=== PATIENT | female | born 1960 | race Caucasian/White ===

== ENCOUNTER 2023-02-20 10:15 | Outpatient (CLI) | payer OTHER | END 2023-02-20 10:16 | disposition home or self-care (01) | LOC: PET 10:15 | PROVIDERS: ATTEND Internal Medicine Hematology & Oncology | DX: C50.211 Malignant neoplasm of upper-inner quadrant of right female breast (principal); C79.51 Secondary malignant neoplasm of bone | CPT/HCPCS: 78815; A9552 ==

== ENCOUNTER 2023-04-08 07:22 | Inpatient (IN) | payer OTHER ==
[2023-04-08] MEDS ORDERED: Ondansetron PF 4 MG/2 ML Vial ONE ×2 (07:49→07:51)
[2023-04-08] MEDS ORDERED: Cefepime 2 GM VIAL ONE (07:49)
[2023-04-08] MEDS ORDERED: Ketorolac Tromethamine 30 MG/ML VIAL ONE (07:49)
[2023-04-08 07:56] LABS: #Monocytes 1.8 thou/uL (0.11-0.59); #Neutrophils 9.3 thou/uL (1.40-6.50); %Basophils 0.2 % (0.0-1.0); %Lymphocytes 8.4 % (21.0-51.0); %Monocytes 13.4 % (0.0-10.0); %Neutrophils 70.1 % (42.0-75.0); Hematocrit 30.7 % (36.0-47.0); Hemoglobin 9.7 g/dL (12.0-16.0); Mean Corpuscular HGB CONC 31.6 g/dL (32.0-36.0); Mean Corpuscular Hemoglobin 28.1 pg (27.0-31.0); Mean Platelet Volume 9.7 fL (7.4-10.4); Platelet Count 420 10x3/uL (130-400); RBC Distribution Width 19.9 % (11.5-14.5); Red Blood Cell (RBC) Count 3.45 mill/uL (4.20-5.40); White Blood Cell (WBC) Count 13.2 10x3/uL (4.8-10.8)
[2023-04-08 08:11] LABS: INR-International Normal Ratio 1.3; PTT 43.7 sec (22.9-36.1); Prothrombin Time 16.9 sec (12.0-14.7)
[2023-04-08] MEDS ORDERED: Acetaminophen 500 MG TAB ONE (08:52)
[2023-04-08 09:03] LABS: Carbon Dioxide 23 mmol/L (22-29); Chloride 99 mmol/L (98-107); Sodium 139 mmol/L (136-145)
[2023-04-08 09:04] LABS: AST (SGOT) 42 U/L (5-34); Albumin 4.3 g/dL (3.5-5.0); Alkaline Phosphatase 115 U/L (40-110); Anion Gap 21 mmol/L (10-20); BUN (Urea Nitrogen) 24 mg/dL (9.8-20.1); Bilirubin, Total 0.9 mg/dL (0.2-1.2); Calc. Creatinine Clearance 0 mL/min (70-130); Calcium 10.8 mg/dL (7.6-10.4); Estimated GFR 48; Globulin 4.8 g/dL (2.4-3.5); Glucose 140 mg/dL (70-105); Protein, Total 9.1 g/dL (6.0-8.3)
[2023-04-08 09:05] LABS: ALT (SGPT) 21 U/L (8-55)
[2023-04-08 09:38] LABS: SARS-CoV-2 NAA Rapid Test Not Detected (NotDetected)
[2023-04-08 10:01] LABS: Bacteria/HPF None Seen HPF (None Seen); Bilirubin Negative (Negative); Blood, Urine Negative (Negative); CAUTI Indications for Culture Fever or rigors; Clarity Clear (Clear); Glucose, Urine (Dipstick) Normal (Negative); Ketone, Urine Negative (Negative); Leukocyte Negative Leu/uL (Negative); Nitrite Negative (Negative); Protein, Urine (Dipstick) 70 mg/dL (Neg-Trace); RBC/HPF 0-3 HPF (0-3); Specific Gravity, Urine 1.039 (1.002-1.036); Squamous Epithelial 0-3 HPF (0-3); Urobilinogen Normal mg/dL (Less than 2); WBC/HPF 0-3 HPF (0-3); pH, Urine 8.5 (5.0-9.0)
[2023-04-08 10:03] LABS: Urine Culture Reflex No No
[2023-04-08] MEDS ORDERED: Iopamidol-370 76% 500 ML MDV (1 ML CHARGE) ONE (10:27)
[2023-04-08] MEDS ORDERED: Vancomycin 1 GM/200 ML (FROZEN) BAG ONE (11:41)
[2023-04-08] MEDS ORDERED: Ondansetron ODT 4 MG TAB PO PRN (12:10)
[2023-04-08 12:25] LABS: Lactic Acid 0.5 mmol/L (0.5-2.2)
[2023-04-08] MEDS ORDERED: Ondansetron ORAL SOLN. 4 MG/5 ML UDCUP PO PRN (12:38)
[2023-04-08] MEDS: Lactated Ringer's 1,000 ML IV SCH ×2 (13:45→20:57)
[2023-04-08 14:03] VITALS: BMI 27.1
[2023-04-08] MEDS ORDERED: metroNIDAZOLE 500 MG/100 ML BAG ONE (14:20)
[2023-04-08] MEDS: metroNIDAZOLE 500 MG in Premix Bag 1 BAG IVPB SCH ×2 (14:35→20:57)
[2023-04-08] MEDS ORDERED: Acetaminophen 325 MG TAB ONE (16:38)
[2023-04-08] MEDS ORDERED: Ondansetron ODT 4 MG TAB ONE (16:43)
[2023-04-08] MEDS: Acetaminophen 325 MG TAB PO PRN (16:46)
[2023-04-08] MEDS ORDERED: Ibuprofen 600 MG TAB PO PRN (17:19)
[2023-04-08] MEDS: Ondansetron PF 4 MG/2 ML Vial IVP PRN (18:13)
[2023-04-08] MEDS ORDERED: Acetaminophen 650 MG Suppository PR PRN (19:26)
[2023-04-08] MEDS: Ketorolac Tromethamine 30 MG/ML VIAL IVP PRN (19:36)
[2023-04-08] MEDS: Promethazine HCl 25 MG in Sodium Chloride 0.9% 50 ML IVPB PRN (19:45)
[2023-04-08] MEDS: Cefepime 2 GM in Sodium Chloride 0.9% 100 ML IVPB SCH (20:57)
[2023-04-08] MEDS: Atorvastatin Calcium 10 MG TAB PO SCH (20:57)
[2023-04-09] MEDS: metroNIDAZOLE 500 MG in Premix Bag 1 BAG IVPB SCH ×3 (05:30→22:44)
[2023-04-09] MEDS: Lactated Ringer's 1,000 ML IV SCH ×3 (05:30→17:51)
[2023-04-09 06:38] LABS: Hematocrit 22.7 % (36.0-47.0); Hemoglobin 7.1 g/dL (12.0-16.0); Mean Corpuscular HGB CONC 31.3 g/dL (32.0-36.0); Mean Corpuscular Hemoglobin 28.4 pg (27.0-31.0); Mean Corpuscular Volume 90.8 fl (78.0-98.0); Mean Platelet Volume 9.7 fL (7.4-10.4); Platelet Count 279 10x3/uL (130-400); RBC Distribution Width 19.7 % (11.5-14.5); White Blood Cell (WBC) Count 6.8 10x3/uL (4.8-10.8)
[2023-04-09 06:48] LABS: Delete Auto Diff?? YES; Manual Diff?? YES
[2023-04-09 07:44] LABS: ALT (SGPT) 21 U/L (8-55); AST (SGOT) 28 U/L (5-34); Albumin 3.2 g/dL (3.5-5.0); Alkaline Phosphatase 82 U/L (40-110); Anion Gap 12 mmol/L (10-20); BUN (Urea Nitrogen) 18 mg/dL (9.8-20.1); Bilirubin, Total Less than 1.0 mg/dL (0.2-1.2); Calc. Creatinine Clearance 81 mL/min (70-130); Calcium 8.5 mg/dL (7.8-10.44); Carbon Dioxide 24 mmol/L (22-29); Chloride 106 mmol/L (98-107); Estimated GFR 74; Globulin 3.3 g/dL (2.4-3.5); Glucose 106 mg/dL (70-105); Potassium 3.5 mmol/L (3.5-5.1); Protein, Total 6.5 g/dL (6.0-8.3); Sodium 138 mmol/L (136-145)
[2023-04-09] MEDS: Promethazine HCl 25 MG in Sodium Chloride 0.9% 50 ML IVPB PRN ×2 (08:36→16:56)
[2023-04-09 09:29] LABS: Anisocytosis SLIGHT = 6-15 cells HPF (0-5); Band 10 % (5-11); CellaVision Operator ID LAB.GE; Large Platelets 2.9 % (0-5); Lymphocytes 5 % (21-51); Metamyelocyte 6 % (0-0); Monocytes 9 % (0-10); Myelocyte 4 % (0-0); Neutrophil 63 % (42-75); Platelet Adequacy Comment Platelets Normal; Polychromasia MODERATE = 3-4 cells HPF (0-2); Reactive Lymphocytes 3 % (0-10); Total Cell Count 103
[2023-04-09] MEDS: Cefepime 2 GM in Sodium Chloride 0.9% 100 ML IVPB SCH (09:39)
[2023-04-09] MEDS: Ketorolac Tromethamine 30 MG/ML VIAL IVP PRN (09:39)
[2023-04-09] MEDS: Losartan 25 MG TAB PO SCH (09:40)
[2023-04-09] MEDS: Hydrochlorothiazide 25 MG TAB PO SCH (09:40)
[2023-04-09] MEDS: Sertraline 100 MG TAB PO SCH (09:40)
[2023-04-09] MEDS: NIFEdipine XL 30 MG TAB PO SCH (09:41)
[2023-04-09] MEDS: Fenofibrate Nanocrystallized 145 MG TAB PO SCH (09:41)
[2023-04-09] MEDS: Ondansetron PF 4 MG/2 ML Vial IVP PRN ×2 (16:25→22:44)
[2023-04-09 17:04] LABS: Hemoglobin 7.5 g/dL (12.0-16.0); Mean Corpuscular HGB CONC 31.3 g/dL (32.0-36.0); Mean Corpuscular Hemoglobin 27.9 pg (27.0-31.0); Mean Corpuscular Volume 89.2 fl (78.0-98.0); Mean Platelet Volume 9.4 fL (7.4-10.4); Platelet Count 303 10x3/uL (130-400); RBC Distribution Width 19.7 % (11.5-14.5); Red Blood Cell (RBC) Count 2.69 mill/uL (4.20-5.40); White Blood Cell (WBC) Count 6.4 10x3/uL (4.8-10.8)
[2023-04-09 17:07] LABS: Delete Auto Diff?? YES; Manual Diff?? YES
[2023-04-09] MEDS: Acetaminophen 325 MG TAB PO PRN (17:51)
[2023-04-09 19:11] LABS: Anisocytosis SLIGHT = 6-15 cells HPF (0-5); Band 5 % (5-11); Burr Cells SLIGHT = 2-5 cells HPF (0-1); CellaVision Operator ID LAB.KB; Eosinophils 1 % (0-10); Hypochromia SLIGHT = 6-15 cells HPF (0-5); Large Platelets 1.7 % (0-5); Lymphocytes 14 % (21-51); Monocytes 9 % (0-10); Myelocyte 3 % (0-0); Neutrophil 67 % (42-75); Platelet Adequacy Comment Platelets Normal; Polychromasia SLIGHT = 2-3 cells HPF (0-2); Reactive Lymphocytes 3 % (0-10); Target Cells SLIGHT = 2-5 cells HPF (0-1); Total Cell Count 118
[2023-04-09] MEDS: Atorvastatin Calcium 10 MG TAB PO SCH (20:38)
[2023-04-09] MEDS: Cefepime 1 GM in Sodium Chloride 0.9% 100 ML IVPB SCH (20:38)
[2023-04-10] MEDS: Promethazine HCl 25 MG in Sodium Chloride 0.9% 50 ML IVPB PRN (01:17)
[2023-04-10] MEDS: metroNIDAZOLE 500 MG in Premix Bag 1 BAG IVPB SCH (06:34)
[2023-04-10 07:37] LABS: Hemoglobin 6.9 g/dL (12.0-16.0); Mean Corpuscular HGB CONC 31.4 g/dL (32.0-36.0); Mean Corpuscular Volume 89.4 fl (78.0-98.0); Mean Platelet Volume 9.6 fL (7.4-10.4); Platelet Count 278 10x3/uL (130-400); RBC Distribution Width 19.4 % (11.5-14.5); Red Blood Cell (RBC) Count 2.46 mill/uL (4.20-5.40)
[2023-04-10 07:47] LABS: Delete Auto Diff?? YES; Manual Diff?? YES
[2023-04-10 08:09] LABS: ALT (SGPT) 25 U/L (8-55); AST (SGOT) 32 U/L (5-34); Albumin 3.3 g/dL (3.5-5.0); Alkaline Phosphatase 82 U/L (40-110); Anion Gap 15 mmol/L (10-20); BUN (Urea Nitrogen) 12 mg/dL (9.8-20.1); Bilirubin, Total 0.3 mg/dL (0.2-1.2); Calc. Creatinine Clearance 95 mL/min (70-130); Carbon Dioxide 23 mmol/L (22-29); Chloride 103 mmol/L (98-107); Estimated GFR 90; Globulin 3.4 g/dL (2.4-3.5); Glucose 97 mg/dL (70-105); Potassium 3.4 mmol/L (3.5-5.1); Protein, Total 6.7 g/dL (6.0-8.3); Sodium 138 mmol/L (136-145)
[2023-04-10 08:30] LABS: Anisocytosis SLIGHT = 6-15 cells HPF (0-5); Band 8 % (5-11); CellaVision Operator ID LAB.GE; Giant Platelets 0.8 % (0-5); Large Platelets 3.3 % (0-5); Lymphocytes 13 % (21-51); Metamyelocyte 9 % (0-0); Monocytes 6 % (0-10); Myelocyte 5 % (0-0); Neutrophil 58 % (42-75); Platelet Adequacy Comment Platelets Normal; Polychromasia SLIGHT = 2-3 cells HPF (0-2); Total Cell Count 120
[2023-04-10] MEDS: Cefepime 1 GM in Sodium Chloride 0.9% 100 ML IVPB SCH (08:44)
[2023-04-10] MEDS: NIFEdipine XL 30 MG TAB PO SCH (08:44)
[2023-04-10] MEDS: Sertraline 100 MG TAB PO SCH (08:45)
[2023-04-10] MEDS: Fenofibrate Nanocrystallized 145 MG TAB PO SCH (08:45)
[2023-04-10] MEDS: Losartan 25 MG TAB PO SCH (08:45)
[2023-04-10] MEDS: Hydrochlorothiazide 25 MG TAB PO SCH (08:45)
[2023-04-10] MEDS: Lactated Ringer's 1,000 ML IV SCH (08:46)
[2023-04-10] MEDS ORDERED: Loperamide HCl 2 MG CAP PO SCH (10:00)
[2023-04-10 11:09] LABS: Hematocrit 23.3 % (36.0-47.0); Hemoglobin 7.3 g/dL (12.0-16.0)
[2023-04-10] MEDS ORDERED: Potassium Chloride 20 MEQ TAB PO SCH (11:30)
[2023-04-10] MEDS: Promethazine 25 MG TAB PO PRN ×2 (11:46→20:00)
[2023-04-10] MEDS: Acetaminophen 325 MG TAB PO PRN ×2 (14:02→21:29)
[2023-04-10 19:07] LABS: Hematocrit 26.1 % (36.0-47.0); Hemoglobin 8.5 g/dL (12.0-16.0)
[2023-04-10] MEDS: Loperamide HCl 2 MG CAP PO PRN (21:26)
[2023-04-10] MEDS: Atorvastatin Calcium 10 MG TAB PO SCH (21:26)
[2023-04-11] MEDS: Lactated Ringer's 1,000 ML IV SCH ×2 (00:02→02:14)
[2023-04-11 02:34] VITALS: TEMP 99.1
[2023-04-11 06:37] LABS: Hematocrit 28.4 % (36.0-47.0); Hemoglobin 8.9 g/dL (12.0-16.0); Mean Corpuscular HGB CONC 31.3 g/dL (32.0-36.0); Mean Corpuscular Hemoglobin 27.9 pg (27.0-31.0); Mean Platelet Volume 9.5 fL (7.4-10.4); Platelet Count 275 10x3/uL (130-400); RBC Distribution Width 18.8 % (11.5-14.5); Red Blood Cell (RBC) Count 3.19 mill/uL (4.20-5.40); White Blood Cell (WBC) Count 4.3 10x3/uL (4.8-10.8)
[2023-04-11 06:40] LABS: Delete Auto Diff?? YES
[2023-04-11 07:01] LABS: ALT (SGPT) 29 U/L (8-55); AST (SGOT) 38 U/L (5-34); Albumin 3.7 g/dL (3.5-5.0); Alkaline Phosphatase 93 U/L (40-110); Anion Gap 16 mmol/L (10-20); BUN (Urea Nitrogen) 11 mg/dL (9.8-20.1); Bilirubin, Total 0.4 mg/dL (0.2-1.2); Calc. Creatinine Clearance 92 mL/min (70-130); Calcium 9.4 mg/dL (7.8-10.44); Carbon Dioxide 25 mmol/L (22-29); Chloride 102 mmol/L (98-107); Estimated GFR 87; Globulin 3.6 g/dL (2.4-3.5); Glucose 106 mg/dL (70-105); Potassium 3.7 mmol/L (3.5-5.1); Protein, Total 7.3 g/dL (6.0-8.3); Sodium 139 mmol/L (136-145)
[2023-04-11] MEDS: Promethazine 25 MG TAB PO PRN (08:29)
[2023-04-11] MEDS: Losartan 25 MG TAB PO SCH (08:29)
[2023-04-11] MEDS: Sertraline 100 MG TAB PO SCH (08:30)
[2023-04-11] MEDS: NIFEdipine XL 30 MG TAB PO SCH (08:30)
[2023-04-11] MEDS: Hydrochlorothiazide 25 MG TAB PO SCH (08:30)
[2023-04-11] MEDS: Fenofibrate Nanocrystallized 145 MG TAB PO SCH (08:30)
[2023-04-11] MEDS: Loperamide HCl 2 MG CAP PO PRN (08:33)
[2023-04-11 08:55] VITALS: BP 166/85
[2023-04-11] MEDS ORDERED: Saccharomyces boulardii 250 MG CAP PO SCH (09:00)
== END 2023-04-11 12:09 | disposition home or self-care (01) | DRG 872 ==
LOC: ERS 07:22 → ERHOLD 11:27 → T4-B 17:40
PROVIDERS: ADMIT Family Medicine; ATTEND Family Medicine
DX: A41.9 Sepsis, unspecified organism (principal); C78.7 Secondary malignant neoplasm of liver and intrahepatic bile duct; C79.51 Secondary malignant neoplasm of bone; K52.9 Noninfective gastroenteritis and colitis, unspecified; D64.9 Anemia, unspecified; I10 Essential (primary) hypertension; E78.5 Hyperlipidemia, unspecified; C50.919 Malignant neoplasm of unspecified site of unspecified female breast; C54.1 Malignant neoplasm of endometrium; Z88.8 Allergy status to other drugs, medicaments and biological substances; Z79.899 Other long term (current) drug therapy; Z90.712 Acquired absence of cervix with remaining uterus; Z98.890 Other specified postprocedural states; Z92.3 Personal history of irradiation; Z80.3 Family history of malignant neoplasm of breast; Z80.42 Family history of malignant neoplasm of prostate; Z80.0 Family history of malignant neoplasm of digestive organs
CPT/HCPCS: 36415; 36416; 36430; 71045; 74177; 80053; 81001; 82977; 83605; 85025; 85610; 85730; 86850; 86900; 86901; 87040; 87086; 87324; 87449; 93005; 94760; 96361; 96365; 96367; 96375; J0692; J1650; J1885; J2405; J2550; J3370-JW; J3490; J7120; P9016; Q0162; Q0169; Q9967

== ENCOUNTER 2023-05-05 11:53 | Day surgery (SDC) | payer OTHER ==
[2023-05-01 11:15] VITALS: BMI 26.6
[2023-05-05] MEDS ORDERED: Ketorolac Tromethamine 30 MG/ML VIAL ONE (12:12)
[2023-05-05] MEDS ORDERED: Acetaminophen 500 MG TAB ONE (12:12)
[2023-05-05] MEDS ORDERED: fentaNYL 50 mcg/mL 1 mL Vial ONE (13:20)
[2023-05-05] MEDS ORDERED: Ondansetron PF 4 MG/2 ML Vial ONE ×2 (13:20→13:37)
[2023-05-05] MEDS ORDERED: Famotidine/PF 20 mg/2ml Vial ONE (13:20)
[2023-05-05] MEDS ORDERED: Propofol 500 MG/50 ML VIAL ONE (13:20)
[2023-05-05] MEDS ORDERED: Midazolam HCl 2 mg/2 ml Vial ONE (13:20)
[2023-05-05] MEDS ORDERED: EPINEPHrine 1 MG/ML AMP ONE (13:22)
[2023-05-05] MEDS ORDERED: Lidocaine 1% (PF) 30 ML VIAL ONE (13:22)
[2023-05-05] MEDS ORDERED: Bupivacaine 0.25% HCL 30 ML VIAL ONE (13:22)
[2023-05-05] MEDS ORDERED: Morphine 4 MG/ML VIAL ONE (13:23)
[2023-05-05] MEDS ORDERED: Sodium Chloride 0.9% 100 ML ONE (13:30)
[2023-05-05] MEDS ORDERED: CEFAZOLIN 2 GM VIAL ONE (13:30)
[2023-05-05] MEDS ORDERED: PROPOFOL 200 MG/20 ML VIAL ONE (13:37)
[2023-05-05] MEDS ORDERED: Lidocaine 1% PF 5 ML VIAL ONE (13:37)
== END 2023-05-05 14:56 | disposition home or self-care (01) ==
LOC: SDC 11:53
PROVIDERS: ATTEND Specialist
PROC: 0JH60WZ Insertion of Totally Implantable Vascular Access Device into Chest Subcutaneous Tissue and Fascia, Open Approach (ICD-10-PCS; principal; 2023-05-05)
DX: C50.912 Malignant neoplasm of unspecified site of left female breast (principal); C50.911 Malignant neoplasm of unspecified site of right female breast; C78.7 Secondary malignant neoplasm of liver and intrahepatic bile duct; C79.51 Secondary malignant neoplasm of bone; I10 Essential (primary) hypertension; E78.5 Hyperlipidemia, unspecified; F32.A Depression, unspecified; Z79.899 Other long term (current) drug therapy; Z88.8 Allergy status to other drugs, medicaments and biological substances; Z90.710 Acquired absence of both cervix and uterus; Z86.16 Personal history of COVID-19
CPT/HCPCS: 71045; C1788; J0171; J1642; J1885; J2001; J2250; J2270; J2405; J2704; J3010; J3490; S0020; S0028

== ENCOUNTER 2023-05-21 08:43 | Day surgery (SDC) | payer OTHER ==
[2023-05-21] MEDS ORDERED: Acetaminophen 500 MG TAB PO SCH (09:15)
[2023-05-21] MEDS ORDERED: diphenhydrAMINE 25 MG CAP PO SCH (09:15)
[2023-05-21] MEDS ORDERED: diphenhydrAMINE 25 MG CAP ONE (09:22)
[2023-05-21] MEDS ORDERED: Acetaminophen 500 MG TAB ONE (09:22)
[2023-05-21 12:04] VITALS: BP 123/60; TEMP 98.6
== END 2023-05-21 12:19 | disposition home or self-care (01) ==
LOC: ONC/OP 08:43
PROVIDERS: ATTEND Internal Medicine Hematology & Oncology
DX: D64.9 Anemia, unspecified (principal); D69.59 Other secondary thrombocytopenia; Z91.048 Other nonmedicinal substance allergy status; Z91.041 Radiographic dye allergy status; Z88.8 Allergy status to other drugs, medicaments and biological substances
CPT/HCPCS: 36430; 86850; 86900; 86901; J1642; P9016

== ENCOUNTER 2023-07-15 11:21 | Outpatient (CLI) | payer OTHER | END 2023-07-15 11:22 | disposition home or self-care (01) | LOC: SCSMRI 11:21 | PROVIDERS: ATTEND Internal Medicine Hematology & Oncology | DX: C50.211 Malignant neoplasm of upper-inner quadrant of right female breast (principal); C79.51 Secondary malignant neoplasm of bone; R51.9 Headache, unspecified; R90.82 White matter disease, unspecified | CPT/HCPCS: 70553 ==

== ENCOUNTER 2023-10-16 08:59 | Observation (INO) | payer OTHER ==
[2023-10-16] MEDS ORDERED: Morphine 4 MG/ML VIAL ONE (09:30)
[2023-10-16] MEDS ORDERED: Ondansetron PF 4 MG/2 ML Vial ONE ×2 (09:30→09:33)
[2023-10-16 09:54] LABS: Hematocrit 29.7 % (36.0-47.0); Hemoglobin 9.8 g/dL (12.0-16.0); Manual Diff?? YES; Mean Corpuscular Hemoglobin 30.9 pg (27.0-31.0); Mean Corpuscular Volume 93.7 fl (78.0-98.0); Mean Platelet Volume 10.7 fL (7.4-10.4); Platelet Count 159 10x3/uL (130-400); Red Blood Cell (RBC) Count 3.17 mill/uL (4.20-5.40); White Blood Cell (WBC) Count 19.1 10x3/uL (4.8-10.8)
[2023-10-16 10:02] LABS: Delete Auto Diff?? YES
[2023-10-16 10:12] LABS: ALT (SGPT) 33 U/L (8-55); AST (SGOT) 31 U/L (5-34); Albumin 3.2 g/dL (3.5-5.0); Alkaline Phosphatase 57 U/L (40-110); Anion Gap 12 mmol/L (10-20); BUN (Urea Nitrogen) 21 mg/dL (9.8-20.1); Bilirubin, Total 0.3 mg/dL (0.2-1.2); Calc. Creatinine Clearance 0 mL/min (70-130); Carbon Dioxide 21 mmol/L (22-29); Chloride 112 mmol/L (98-107); Estimated GFR 84; Globulin 2.1 g/dL (2.4-3.5); Glucose 96 mg/dL (70-105); Lipase 55 U/L (8-78); Protein, Total 5.3 g/dL (6.0-8.3); Sodium 142 mmol/L (136-145)
[2023-10-16 10:20] LABS: Critical Call Chemistry ERS.DEC @1019; Potassium 2.5 mmol/L (3.5-5.1)
[2023-10-16 10:43] LABS: Band 12 % (5-11); CellaVision Operator ID LAB.KW3; Lymphocytes 10 % (21-51); Metamyelocyte 2 % (0-0); Monocytes 7 % (0-10); Neutrophil 68 % (42-75); Platelet Adequacy Comment Platelets Normal; Polychromasia SLIGHT = 2-3 cells HPF (0-2); Reactive Lymphocytes 1 % (0-10); Schistocytes SLIGHT = 2-5 cells HPF (0-1); Stomatocytes SLIGHT = 2-5 cells HPF (0-1); Total Cell Count 100
[2023-10-16 10:46] LABS: Bacteria/HPF None Seen HPF (None Seen); Bilirubin Negative (Negative); Blood, Urine 2+ (Negative); CAUTI Indications for Culture Immunosuppressed; Clarity Clear (Clear); Glucose, Urine (Dipstick) Normal (Negative); Ketone, Urine Negative (Negative); Leukocyte Negative Leu/uL (Negative); Nitrite Negative (Negative); Protein, Urine (Dipstick) Negative (Neg-Trace); RBC/HPF 21-50 HPF (0-3); Specific Gravity, Urine 1.011 (1.002-1.036); Squamous Epithelial None Seen HPF (0-3); Urobilinogen Normal mg/dL (Less than 2); WBC/HPF 0-3 HPF (0-3)
[2023-10-16 10:47] LABS: Urine Culture Reflex Yes Yes
[2023-10-16] MEDS ORDERED: Potassium Chloride 20 MEQ TAB ONE (10:54)
[2023-10-16] MEDS ORDERED: Potassium Chloride 20 MEQ (100 mL) BAG ONE (10:54)
[2023-10-16] MEDS ORDERED: Iopamidol-370 76% 500 ML MDV (1 ML CHARGE) ONE (11:17)
[2023-10-16] MEDS ORDERED: Cefepime 2 GM VIAL ONE (12:10)
[2023-10-16] MEDS ORDERED: Sodium Chloride 0.9% 100 ML ONE (12:10)
[2023-10-16] MEDS ORDERED: Magnesium 2 GM/50 ML BAG (IN WATER) ONE (12:11)
[2023-10-16 12:30] LABS: Magnesium 1.4 mg/dL (1.6-2.6); Phosphorus 1.7 mg/dL (2.3-4.7)
[2023-10-16] MEDS ORDERED: Ondansetron ODT 4 MG TAB PO PRN (13:40)
[2023-10-16] MEDS ORDERED: Promethazine 25 MG TAB PO PRN (13:40)
[2023-10-16] MEDS ORDERED: Acetaminophen/Codeine 30-300mg Tablet PO PRN (13:40)
[2023-10-16 14:22] LABS: Magnesium 2.5 mg/dL (1.6-2.6)
[2023-10-16] MEDS: Lactated Ringer's 1,000 ML IV SCH (14:44)
[2023-10-16] MEDS: Enoxaparin 40 MG (0.4 mL) SYRINGE SC SCH (14:45)
[2023-10-16 15:08] VITALS: BMI 28.8
[2023-10-16 15:54] LABS: SARS-CoV-2 NAA Rapid Test Not Detected (NotDetected)
[2023-10-16] MEDS: PHOS-NAK 1 PKT PACK PO SCH (15:59)
[2023-10-16] MEDS: Atorvastatin Calcium 10 MG TAB PO SCH (16:00)
[2023-10-16 16:43] LABS: Anion Gap 9 mmol/L (10-20); BUN (Urea Nitrogen) 22 mg/dL (9.8-20.1); Calc. Creatinine Clearance 68 mL/min (70-130); Carbon Dioxide 26 mmol/L (22-29); Chloride 105 mmol/L (98-107); Estimated GFR 56; Glucose 125 mg/dL (70-105); Potassium 3.3 mmol/L (3.5-5.1); Sodium 137 mmol/L (136-145)
[2023-10-17 06:30] LABS: Hematocrit 27.4 % (36.0-47.0); Hemoglobin 8.6 g/dL (12.0-16.0); Manual Diff?? YES; Mean Corpuscular HGB CONC 31.4 g/dL (32.0-36.0); Mean Corpuscular Volume 95.5 fl (78.0-98.0); Platelet Count 152 10x3/uL (130-400); RBC Distribution Width 15.2 % (11.5-14.5); Red Blood Cell (RBC) Count 2.87 mill/uL (4.20-5.40)
[2023-10-17 06:37] LABS: Delete Auto Diff?? YES
[2023-10-17 07:03] LABS: Band 26 % (5-11); CellaVision Operator ID LAB.CLH1; Eosinophils 2 % (0-10); Hypochromia SLIGHT = 6-15 cells HPF (0-5); Large Platelets 2.7 % (0-5); Lymphocytes 9 % (21-51); Metamyelocyte 4 % (0-0); Monocytes 11 % (0-10); Neutrophil 48 % (42-75); Platelet Adequacy Comment Platelets Normal; Polychromasia SLIGHT = 2-3 cells HPF (0-2); Total Cell Count 110
[2023-10-17 08:00] LABS: Magnesium 2.1 mg/dL (1.6-2.6); Phosphorus 2.7 mg/dL (2.3-4.7)
[2023-10-17] MEDS ORDERED: FLU VACC QS2023-24(6MOS UP)/PF 60 MCG/0.5 ML SYRINGE IM ONE (09:00)
[2023-10-17 09:04] VITALS: BP 118/69; TEMP 98.6
[2023-10-17 09:48] LABS: Anion Gap 11 mmol/L (10-20); BUN (Urea Nitrogen) 17 mg/dL (9.8-20.1); Calc. Creatinine Clearance 81 mL/min (70-130); Calcium 8.2 mg/dL (7.8-10.44); Carbon Dioxide 27 mmol/L (22-29); Chloride 105 mmol/L (98-107); Estimated GFR 69; Glucose 94 mg/dL (70-105); Potassium 4.1 mmol/L (3.5-5.1); Sodium 139 mmol/L (136-145)
[2023-10-17] MEDS: Fenofibrate Nanocrystallized 145 MG TAB PO SCH (10:05)
[2023-10-17] MEDS: Potassium Chloride 20 MEQ TAB PO SCH (10:05)
[2023-10-17] MEDS: NIFEdipine XL 30 MG ER.TAB PO SCH (10:05)
[2023-10-17] MEDS: Losartan 25 MG TAB PO SCH (10:06)
[2023-10-17] MEDS: Sertraline 100 MG TAB PO SCH (10:06)
[2023-10-17] MEDS: Calcium Carbonate 600 MG + Vit D TAB PO SCH (10:07)
[2023-10-17] MEDS: Hydrochlorothiazide 25 MG TAB PO SCH (10:07)
== END 2023-10-17 13:15 | disposition home or self-care (01) ==
LOC: ERS 08:59 → MSONC 12:03
PROVIDERS: ADMIT Family Medicine; ATTEND Family Medicine
DX: E86.0 Dehydration (principal); A08.4 Viral intestinal infection, unspecified; I10 Essential (primary) hypertension; D72.829 Elevated white blood cell count, unspecified; C50.919 Malignant neoplasm of unspecified site of unspecified female breast; E87.6 Hypokalemia; E83.42 Hypomagnesemia; E83.39 Other disorders of phosphorus metabolism; C79.51 Secondary malignant neoplasm of bone; F32.A Depression, unspecified; Z79.899 Other long term (current) drug therapy; Z88.8 Allergy status to other drugs, medicaments and biological substances; Z91.041 Radiographic dye allergy status; Z91.048 Other nonmedicinal substance allergy status; Z90.710 Acquired absence of both cervix and uterus
CPT/HCPCS: 36415; 71045; 74177; 80048; 80053; 81001; 83605; 83690; 83735; 84100; 84145; 85025; 87040; 87086; 96361; 96365; 96367; 96368; 96372; 96375; G0378; J0692; J1642; J1650; J2270; J2405; J3475; J3480; J3490; J7120; Q9967

== ENCOUNTER 2023-11-18 07:59 | Outpatient (CLI) | payer OTHER ==
[2023-11-18] MEDS ORDERED: Iopamidol 370 76% 100 ML VIAL ONE (10:40)
== END 2023-11-18 08:00 | disposition home or self-care (01) ==
LOC: CT 07:59
PROVIDERS: ATTEND Internal Medicine Hematology & Oncology
DX: C50.919 Malignant neoplasm of unspecified site of unspecified female breast (principal); C79.51 Secondary malignant neoplasm of bone
CPT/HCPCS: 71260; J1642; Q9967

== ENCOUNTER 2024-02-24 09:32 | Outpatient (CLI) | payer OTHER | END 2024-02-24 09:33 | disposition home or self-care (01) | LOC: NM 09:32 | PROVIDERS: ATTEND Internal Medicine Hematology & Oncology | DX: C50.211 Malignant neoplasm of upper-inner quadrant of right female breast (principal); C79.51 Secondary malignant neoplasm of bone; R94.8 Abnormal results of function studies of other organs and systems | CPT/HCPCS: 71260; 74177; 78306; A9503; J1642 ==

== ENCOUNTER 2024-03-01 14:35 | Outpatient (CLI) | payer OTHER | END 2024-03-01 14:36 | disposition home or self-care (01) | LOC: ULT 14:35 | PROVIDERS: ATTEND Internal Medicine Hematology & Oncology | DX: Z51.11 Encounter for antineoplastic chemotherapy (principal); C50.211 Malignant neoplasm of upper-inner quadrant of right female breast; C79.51 Secondary malignant neoplasm of bone; D50.8 Other iron deficiency anemias; D70.1 Agranulocytosis secondary to cancer chemotherapy; Z79.899 Other long term (current) drug therapy | CPT/HCPCS: 93306 ==

== ENCOUNTER 2024-05-27 08:29 | Outpatient (CLI) | payer OTHER | END 2024-05-27 08:30 | disposition home or self-care (01) | LOC: CT 08:29 | PROVIDERS: ATTEND Internal Medicine Hematology & Oncology | DX: C50.211 Malignant neoplasm of upper-inner quadrant of right female breast (principal); C79.51 Secondary malignant neoplasm of bone; D50.8 Other iron deficiency anemias; D70.1 Agranulocytosis secondary to cancer chemotherapy; T45.1X5A Adverse effect of antineoplastic and immunosuppressive drugs, initial encounter | CPT/HCPCS: 71260; 74177; 78306; A9503; J1642 ==

== ENCOUNTER 2024-09-10 08:28 | Outpatient (CLI) | payer OTHER ==
[2024-09-10] MEDS ORDERED: Iopamidol 370 76% 100 ML VIAL ONE (08:46)
== END 2024-09-10 08:29 | disposition home or self-care (01) ==
LOC: CT 08:28
PROVIDERS: ATTEND Internal Medicine Hematology & Oncology
DX: C50.211 Malignant neoplasm of upper-inner quadrant of right female breast (principal); C79.51 Secondary malignant neoplasm of bone; D50.8 Other iron deficiency anemias; D70.1 Agranulocytosis secondary to cancer chemotherapy
CPT/HCPCS: 71260; 74177; 78306; A9503

== ENCOUNTER 2025-04-22 15:39 | Inpatient (IN) | payer OTHER ==
[~2025-04-22 15:39] MED LIST: Iopamidol-370 76% 500 ML MDV (1 ML CHARGE) ONE
[2025-04-22] MEDS ORDERED: HYDROmorphone 0.5 MG/0.5 ML SYRINGE ONE ×2 (17:21→19:42)
[2025-04-22] MEDS ORDERED: Ondansetron PF 4 MG/2 ML Vial ONE (17:21)
[2025-04-22 17:45] LABS: Actual Bicarbonate (HCO3v) 25.5 mEq/L (22-28); Base Excess 2.5 mEq/L (-2.0 to +3.0); Calcium, Ionized (venous) 1.17 mmol/L (1.16-1.32); Chloride (VBG) 100 mmol/L (98-106); Hematocrit-VBG 59 % (36.0-47.0); Hemoglobin (Hb) 20.1 g/dL (11.7-16.0); Potassium (VBG) 3.60 mmol/L (3.70-5.30); Sodium 142 mmol/L (133-146)
[2025-04-22 18:54] LABS: Hematocrit 23.6 % (36.0-47.0); Hemoglobin 7.6 g/dL (12.0-16.0); Mean Corpuscular Hemoglobin 32.2 pg (27.0-31.0); Mean Corpuscular Volume 100.0 fL (78.0-98.0); Platelet Count 124 10x3/uL (130-400); Red Blood Cell (RBC) Count 2.36 mill/uL (4.20-5.40); White Blood Cell (WBC) Count 23.97 10x3/uL (4.8-10.8)
[2025-04-22 19:00] LABS: ALT (SGPT) 27 U/L (Less than 34); AST (SGOT) 78 U/L (11-34); Albumin 3.2 g/dL (3.1-4.5); Alkaline Phosphatase 127 U/L (40-110); Anion Gap 19 mmol/L (10-20); BUN (Urea Nitrogen) 44 mg/dL (9.8-20.1); Bilirubin, Total 0.3 mg/dL (0.3-1.2); Calc. Creatinine Clearance 0 mL/min (70-130); Calcium 9.6 mg/dL (7.8-10.44); Carbon Dioxide 24 mmol/L (23-31); Chloride 103 mmol/L (98-107); Globulin 3.6 g/dL (2.4-3.5); Glucose 102 mg/dL (80-115); Lipase 50 U/L (8-78); Potassium 3.5 mmol/L (3.5-5.1); Sodium 142 mmol/L (136-145)
[2025-04-22 19:15] LABS: Dohle Bodies MODERATE; Macrocytosis SLIGHT = 6-15 cells HPF (0-5); Ovalocytes SLIGHT = 2-5 cells HPF (0-1); Platelet Adequacy Comment Platelets Decreased; Polychromasia SLIGHT = 2-3 cells HPF (0-2); Smudge Cells 2.0 %; Stomatocytes SLIGHT = 2-5 cells HPF (0-1); Toxic Granulation SLIGHT
[2025-04-22 19:43] LABS: Bacteria/HPF None Seen HPF (None Seen); CAUTI Indications for Culture < 2yrs of age; Glucose, Urine (Dipstick) Normal (Negative); Leukocyte Negative Leu/uL (Negative); Protein, Urine (Dipstick) Negative (Neg-Trace); Specific Gravity, Urine 1.016 (1.002-1.036)
[2025-04-22 19:44] LABS: RBC/HPF None Seen HPF (0-3); WBC/HPF None Seen HPF (0-3)
[2025-04-22 19:45] LABS: Urine Culture Reflex Yes Yes
[2025-04-22] MEDS: Acetaminophen 325 MG TAB PO SCH (23:35)
[2025-04-22] MEDS: HYDROcodone/Acetaminophen 5/325 mg Tablet PO SCH (23:37)
[2025-04-23 04:55] LABS: Hematocrit 23.8 % (36.0-47.0); Hemoglobin 7.4 g/dL (12.0-16.0); Mean Corpuscular Hemoglobin 30.8 pg (27.0-31.0); Mean Corpuscular Volume 99.2 fL (78.0-98.0); Platelet Count 111 10x3/uL (130-400); Red Blood Cell (RBC) Count 2.40 mill/uL (4.20-5.40); White Blood Cell (WBC) Count 21.88 10x3/uL (4.8-10.8)
[2025-04-23 05:14] LABS: ALT (SGPT) 28 U/L (Less than 34); AST (SGOT) 90 U/L (11-34); Albumin 3.1 g/dL (3.1-4.5); Alkaline Phosphatase 137 U/L (40-110); Anion Gap 14 mmol/L (10-20); BUN (Urea Nitrogen) 34 mg/dL (9.8-20.1); Bilirubin, Total 0.3 mg/dL (0.3-1.2); Calc. Creatinine Clearance 0 mL/min (70-130); Calcium 9.8 mg/dL (7.8-10.44); Carbon Dioxide 29 mmol/L (23-31); Chloride 99 mmol/L (98-107); Globulin 3.5 g/dL (2.4-3.5); Glucose 122 mg/dL (80-115); Potassium 3.4 mmol/L (3.5-5.1); Sodium 139 mmol/L (136-145)
[2025-04-23 05:34] LABS: Nucleated RBC (Manual Ct) 1 % (0); Platelet Adequacy Comment Platelets Decreased; Polychromasia SLIGHT = 2-3 cells HPF (0-2)
[2025-04-23 07:25] LABS: Magnesium 1.8 mg/dL (1.6-2.6)
[2025-04-23] MEDS: Pantoprazole 40 MG DR.TAB PO SCH (08:47)
[2025-04-23] MEDS: Mupirocin 1 GM TUBE TP SCH (08:47)
[2025-04-23] MEDS: Sertraline 100 MG TAB PO SCH (08:47)
[2025-04-23] MEDS: Enoxaparin 40 MG (0.4 mL) SYRINGE SC SCH (08:48)
[2025-04-23] MEDS: oxyCODONE/Acetaminophen 5 mg/325 mg Tablet PO SCH (11:50)
[2025-04-23] MEDS: Metoclopramide HCl 10 MG (2 mL) VIAL IVP SCH (22:58)
[2025-04-23] MEDS: Melatonin 3 MG TAB PO PRN (23:13)
[2025-04-23] MEDS: Metoprolol Succinate XL 100 MG ER.TAB PO SCH (23:13)
[2025-04-24] MEDS: Metoclopramide HCl 10 MG (2 mL) VIAL IVP PRN (05:05)
[2025-04-24 05:53] LABS: Hematocrit 23.7 % (36.0-47.0); Hemoglobin 7.5 g/dL (12.0-16.0); Mean Corpuscular Hemoglobin 31.4 pg (27.0-31.0); Mean Corpuscular Volume 99.2 fL (78.0-98.0); Platelet Count 117 10x3/uL (130-400); Red Blood Cell (RBC) Count 2.39 mill/uL (4.20-5.40); White Blood Cell (WBC) Count 17.03 10x3/uL (4.8-10.8)
[2025-04-24 05:57] LABS: ALT (SGPT) 29 U/L (Less than 34); AST (SGOT) 101 U/L (11-34); Albumin 3.0 g/dL (3.1-4.5); Alkaline Phosphatase 162 U/L (40-110); Anion Gap 15 mmol/L (10-20); BUN (Urea Nitrogen) 20 mg/dL (9.8-20.1); Bilirubin, Total 0.4 mg/dL (0.3-1.2); Calc. Creatinine Clearance 60 mL/min (70-130); Calcium 10.0 mg/dL (7.8-10.44); Carbon Dioxide 30 mmol/L (23-31); Chloride 100 mmol/L (98-107); Globulin 3.5 g/dL (2.4-3.5); Glucose 112 mg/dL (80-115); Potassium 4.4 mmol/L (3.5-5.1); Sodium 141 mmol/L (136-145)
[2025-04-24 06:33] LABS: Platelet Adequacy Comment Platelets Decreased; RBC Morphology Within Normal Limits; Smudge Cells 3.9 %
[2025-04-24 07:30] VITALS: TEMP 98.3
[2025-04-24 12:34] VITALS: BP 125/89
== END 2025-04-24 12:40 | disposition home or self-care (01) | DRG 948 ==
LOC: ERS 15:39 → MSONC 20:41 → OBSVTOIN 04-24 09:40
PROVIDERS: ADMIT Internal Medicine; ATTEND Hospitalist
DX: G89.3 Neoplasm related pain (acute) (chronic) (principal); C79.81 Secondary malignant neoplasm of breast; N17.9 Acute kidney failure, unspecified; E78.5 Hyperlipidemia, unspecified; F32.A Depression, unspecified; I10 Essential (primary) hypertension; D72.829 Elevated white blood cell count, unspecified; K82.8 Other specified diseases of gallbladder; D75.839 Thrombocytosis, unspecified; Z79.899 Other long term (current) drug therapy; Z90.710 Acquired absence of both cervix and uterus; Z98.890 Other specified postprocedural states; Z88.8 Allergy status to other drugs, medicaments and biological substances; Z85.43 Personal history of malignant neoplasm of ovary
CPT/HCPCS: 36415; 71275; 74177; 80053; 81001; 82805; 83605; 83690; 83735; 83880; 84100; 84484; 85025; 87086; 93005; 94760; 96372; 96374; 96375; 96376; G0378; J1171; J1642; J1650; J2270; J2405; J2550; J2765; J7120; Q0162; Q0169; Q9967

== ENCOUNTER 2025-05-20 06:24 | Inpatient (IN) | payer OTHER ==
[2025-05-20] MEDS ORDERED: Ondansetron PF 4 MG/2 ML Vial ONE (07:02)
[2025-05-20 07:25] LABS: Hematocrit 25.5 % (36.0-47.0); Hemoglobin 7.7 g/dL (12.0-16.0); Mean Corpuscular Hemoglobin 30.8 pg (27.0-31.0); Mean Corpuscular Volume 102.0 fL (78.0-98.0); Red Blood Cell (RBC) Count 2.50 mill/uL (4.20-5.40); White Blood Cell (WBC) Count 11.15 10x3/uL (4.8-10.8)
[2025-05-20 07:31] LABS: ALT (SGPT) 72 U/L (Less than 34); AST (SGOT) 237 U/L (11-34); Albumin 2.8 g/dL (3.1-4.5); Alkaline Phosphatase 215 U/L (40-110); Anion Gap 13 mmol/L (10-20); BUN (Urea Nitrogen) 20 mg/dL (9.8-20.1); Bilirubin, Total 1.6 mg/dL (0.3-1.2); Calc. Creatinine Clearance 0 mL/min (70-130); Calcium 12.1 mg/dL (7.8-10.44); Carbon Dioxide 27 mmol/L (23-31); Chloride 102 mmol/L (98-107); Globulin 3.5 g/dL (2.4-3.5); Glucose 118 mg/dL (80-115); Lipase 65 U/L (8-78); Magnesium 1.7 mg/dL (1.6-2.6); Potassium 3.2 mmol/L (3.5-5.1); Sodium 139 mmol/L (136-145)
[2025-05-20 08:21] LABS: Anisocytosis SLIGHT = 6-15 cells HPF (0-5); Giant Platelets 0.9 % (0-5); Macrocytosis SLIGHT = 6-15 cells HPF (0-5); Microcytosis SLIGHT = 6-15 cells HPF (0-5); Nucleated RBC (Manual Ct) 18 % (0); Platelet Adequacy Comment Platelets Decreased; Polychromasia SLIGHT = 2-3 cells HPF (0-2); Smudge Cells 22.7 %
[2025-05-20 08:26] LABS: Platelet Count 52 10x3/uL (130-400)
[2025-05-20] MEDS ORDERED: Glucagon 1 MG/ML KIT IM PRN (10:20)
[2025-05-20] MEDS ORDERED: Acetaminophen 325 MG TAB PO PRN (10:20)
[2025-05-20] MEDS ORDERED: Iopamidol-370 76% 500 ML MDV (1 ML CHARGE) ONE (11:17)
[2025-05-20 11:27] VITALS: BMI 24.2
[2025-05-20] MEDS ORDERED: Sincalide 5 MCG VIAL ONE (15:07)
[2025-05-20] MEDS ORDERED: Bacteriostatic Normal Saline 30 ML VIAL ONE (15:08)
[2025-05-20] MEDS: Metoprolol Succinate XL 100 MG ER.TAB PO SCH (22:17)
[2025-05-20] MEDS: Potassium Chloride 20 MEQ in Premix 2 BAG IVPB SCH (22:24)
[2025-05-21 05:42] LABS: Hematocrit 24.3 % (36.0-47.0); Hemoglobin 6.9 g/dL (12.0-16.0); Mean Corpuscular Hemoglobin 29.6 pg (27.0-31.0); Mean Corpuscular Volume 104.3 fL (78.0-98.0); Platelet Count 41 10x3/uL (130-400); Red Blood Cell (RBC) Count 2.33 mill/uL (4.20-5.40); White Blood Cell (WBC) Count 8.19 10x3/uL (4.8-10.8)
[2025-05-21 06:08] LABS: Anisocytosis SLIGHT = 6-15 cells HPF (0-5); Macrocytosis SLIGHT = 6-15 cells HPF (0-5); Nucleated RBC (Manual Ct) 13 % (0); Platelet Adequacy Comment Platelets Decreased; Polychromasia SLIGHT = 2-3 cells HPF (0-2)
[2025-05-21 06:09] LABS: Anion Gap 12 mmol/L (10-20); BUN (Urea Nitrogen) 19 mg/dL (9.8-20.1); Calc. Creatinine Clearance 53 mL/min (70-130); Calcium 11.7 mg/dL (7.8-10.44); Carbon Dioxide 27 mmol/L (23-31); Chloride 105 mmol/L (98-107); Glucose 94 mg/dL (80-115); Potassium 3.9 mmol/L (3.5-5.1); Sodium 140 mmol/L (136-145)
[2025-05-21] MEDS: Sertraline 100 MG TAB PO SCH (08:09)
[2025-05-21] MEDS: Losartan 25 MG TAB PO SCH (08:09)
[2025-05-21] MEDS: NIFEdipine XL 30 MG ER.TAB PO SCH (08:09)
[2025-05-21] MEDS: Ondansetron PF 4 MG/2 ML Vial IVP PRN (08:47)
[2025-05-21 10:13] VITALS: BMI 24.2
[2025-05-21] MEDS: Pantoprazole 40 MG VIAL IVP SCH ×3 (13:12→19:40)
[2025-05-21] MEDS: Octreotide Acetate 1,250 MCG in Sodium Chloride 0.9% 250 ML 250 ML IVPB SCH (14:10)
[2025-05-21] MEDS: Calcitonin,Salmon,Synthetic 400 UNITS/2 ML SC SCH (15:10)
[2025-05-21] MEDS ORDERED: PROPOFOL 200 MG/20 ML VIAL ONE (16:36)
[2025-05-21 18:33] LABS: Hematocrit 31.3 % (36.0-47.0); Hemoglobin 9.2 g/dL (12.0-16.0); Platelet Count 42 10x3/uL (130-400)
[2025-05-21 18:48] LABS: INR-International Normal Ratio 1.6; PTT 60.0 sec (22.9-36.1); Prothrombin Time 19.2 sec (12.0-14.7)
[2025-05-21 20:34] LABS: Hematocrit 28.3 % (36.0-47.0); Hemoglobin 8.5 g/dL (12.0-16.0); Platelet Count 38 10x3/uL (130-400)
[2025-05-22 05:58] LABS: #Basophils 0.11 10x3/uL (0.0-0.2); #Eosinophils 0.06 10x3/uL (0.0-0.7); #Monocytes 1.32 10x3/uL (0.11-0.59); #Neutrophils 4.97 10x3/uL (1.40-6.50); %Basophils 1.2 % (0.0-1.0); %Eosinophils 0.7 % (0.0-10.0); %Lymphocytes 17.0 % (21.0-51.0); %Monocytes 14.6 % (0.0-10.0); %Neutrophils 54.9 % (42.0-75.0); Hematocrit 28.4 % (36.0-47.0); Hemoglobin 8.8 g/dL (12.0-16.0); Mean Corpuscular Hemoglobin 31.1 pg (27.0-31.0); Mean Corpuscular Volume 100.4 fL (78.0-98.0); Platelet Count 37 10x3/uL (130-400); Red Blood Cell (RBC) Count 2.83 mill/uL (4.20-5.40); White Blood Cell (WBC) Count 9.05 10x3/uL (4.8-10.8)
[2025-05-22 05:59] LABS: ALT (SGPT) 78 U/L (Less than 34); AST (SGOT) 296 U/L (11-34); Albumin 2.4 g/dL (3.1-4.5); Alkaline Phosphatase 209 U/L (40-110); Anion Gap 14 mmol/L (10-20); BUN (Urea Nitrogen) 16 mg/dL (9.8-20.1); Bilirubin, Total 2.9 mg/dL (0.3-1.2); Calc. Creatinine Clearance 62 mL/min (70-130); Calcium 11.8 mg/dL (7.8-10.44); Carbon Dioxide 27 mmol/L (23-31); Chloride 104 mmol/L (98-107); Globulin 2.9 g/dL (2.4-3.5); Glucose 89 mg/dL (80-115); Potassium 3.5 mmol/L (3.5-5.1); Sodium 141 mmol/L (136-145)
[2025-05-22 08:07] LABS: Hematocrit 28.9 % (36.0-47.0); Hemoglobin 8.7 g/dL (12.0-16.0); Platelet Count 49 10x3/uL (130-400)
[2025-05-22] MEDS: oxyCODONE/Acetaminophen 5 mg/325 mg Tablet PO PRN (10:38)
[2025-05-22] MEDS: Calcitonin,Salmon,Synthetic 400 UNITS/2 ML SC SCH (10:40)
[2025-05-22 13:31] LABS: Hematocrit 27.8 % (36.0-47.0); Hemoglobin 8.4 g/dL (12.0-16.0); Platelet Count 37 10x3/uL (130-400)
[2025-05-23 06:15] LABS: Hematocrit 27.4 % (36.0-47.0); Hemoglobin 8.4 g/dL (12.0-16.0); Mean Corpuscular Hemoglobin 31.3 pg (27.0-31.0); Mean Corpuscular Volume 102.2 fL (78.0-98.0); Platelet Count 35 10x3/uL (130-400); Red Blood Cell (RBC) Count 2.68 mill/uL (4.20-5.40); White Blood Cell (WBC) Count 9.24 10x3/uL (4.8-10.8)
[2025-05-23 06:28] LABS: ALT (SGPT) 73 U/L (Less than 34); AST (SGOT) 292 U/L (11-34); Albumin 2.2 g/dL (3.1-4.5); Alkaline Phosphatase 188 U/L (40-110); Anion Gap 15 mmol/L (10-20); BUN (Urea Nitrogen) 13 mg/dL (9.8-20.1); Bilirubin, Total 3.5 mg/dL (0.3-1.2); Calc. Creatinine Clearance 84 mL/min (70-130); Calcium 9.7 mg/dL (7.8-10.44); Carbon Dioxide 25 mmol/L (23-31); Chloride 105 mmol/L (98-107); Globulin 2.8 g/dL (2.4-3.5); Glucose 84 mg/dL (80-115); Potassium 3.5 mmol/L (3.5-5.1); Sodium 141 mmol/L (136-145)
[2025-05-23 06:46] LABS: Anisocytosis SLIGHT = 6-15 cells HPF (0-5); Macrocytosis SLIGHT = 6-15 cells HPF (0-5); Nucleated RBC (Manual Ct) 9 % (0); Platelet Adequacy Comment Platelets Decreased; Polychromasia SLIGHT = 2-3 cells HPF (0-2)
[2025-05-23 07:14] LABS: Magnesium 1.5 mg/dL (1.6-2.6)
[2025-05-23] MEDS: Folic Acid 1 MG TAB PO SCH (08:18)
[2025-05-23] MEDS: Cyanocobalamin (Vitamin B-12) 1,000 MCG TAB PO SCH (08:53)
[2025-05-23] MEDS: Magnesium Sulfate/D5W 1 GM in Premix 1 BAG IVPB SCH (08:53)
[2025-05-23] MEDS ORDERED: Magnesium Oxide 400 MG TAB PO SCH (09:00)
[2025-05-23] MEDS: Furosemide 20 MG (2 mL) VIAL SLOW IVP SCH (10:14)
[2025-05-23 11:09] LABS: INR-International Normal Ratio 1.7; Prothrombin Time 20.4 sec (12.0-14.7)
[2025-05-23 11:10] LABS: PTT 65.7 sec (22.9-36.1)
[2025-05-23] MEDS: Mupirocin 1 GM TUBE NASAL DECOLONIZATION NASAL SCH (20:15)
[2025-05-24 06:09] LABS: Magnesium 1.6 mg/dL (1.6-2.6)
[2025-05-24 06:10] LABS: ALT (SGPT) 67 U/L (Less than 34); AST (SGOT) 318 U/L (11-34); Albumin 2.1 g/dL (3.1-4.5); Alkaline Phosphatase 183 U/L (40-110); Anion Gap 13 mmol/L (10-20); BUN (Urea Nitrogen) 12 mg/dL (9.8-20.1); Bilirubin, Total 4.6 mg/dL (0.3-1.2); Calc. Creatinine Clearance 84 mL/min (70-130); Calcium 8.7 mg/dL (7.8-10.44); Carbon Dioxide 23 mmol/L (23-31); Chloride 110 mmol/L (98-107); Globulin 2.7 g/dL (2.4-3.5); Glucose 79 mg/dL (80-115); Potassium 3.5 mmol/L (3.5-5.1); Sodium 142 mmol/L (136-145)
[2025-05-24 06:19] LABS: INR-International Normal Ratio 2.1; Prothrombin Time 23.8 sec (12.0-14.7)
[2025-05-24 06:20] LABS: #Basophils 0.09 10x3/uL (0.0-0.2); #Eosinophils 0.06 10x3/uL (0.0-0.7); #Monocytes 1.40 10x3/uL (0.11-0.59); #Neutrophils 5.27 10x3/uL (1.40-6.50); %Basophils 1.0 % (0.0-1.0); %Eosinophils 0.6 % (0.0-10.0); %Lymphocytes 18.3 % (21.0-51.0); %Monocytes 14.8 % (0.0-10.0); %Neutrophils 56.0 % (42.0-75.0); Hematocrit 26.6 % (36.0-47.0); Hemoglobin 8.0 g/dL (12.0-16.0); Mean Corpuscular Hemoglobin 30.5 pg (27.0-31.0); Mean Corpuscular Volume 101.5 fL (78.0-98.0); PTT 63.5 sec (22.9-36.1); Platelet Count 31 10x3/uL (130-400); Red Blood Cell (RBC) Count 2.62 mill/uL (4.20-5.40); White Blood Cell (WBC) Count 9.43 10x3/uL (4.8-10.8)
[2025-05-24] MEDS: Magnesium 2 GM/50 ML(in water) 2 GM in Premix 1 BAG IVPB SCH (10:13)
[2025-05-24] MEDS: Calcium Carbonate 500 MG ChewTAB PO SCH ×2 (10:57→20:30)
[2025-05-24] MEDS: VANCOMYCIN 1.75 GM/350 ML Premix BAG IVPB SCH (11:18)
[2025-05-24] MEDS ORDERED: Vancomycin 1 GM in Premix 1 BAG IVPB SCH (21:00)
[2025-05-24] MEDS: Vancomycin 1 GM in Premix 1 BAG IVPB SCH (22:17)
[2025-05-25 07:03] LABS: Hematocrit 28.1 % (36.0-47.0); Hemoglobin 8.3 g/dL (12.0-16.0); Mean Corpuscular Hemoglobin 30.2 pg (27.0-31.0); Mean Corpuscular Volume 102.2 fL (78.0-98.0); Platelet Count 32 10x3/uL (130-400); Red Blood Cell (RBC) Count 2.75 mill/uL (4.20-5.40); White Blood Cell (WBC) Count 11.82 10x3/uL (4.8-10.8)
[2025-05-25 07:13] LABS: ALT (SGPT) 72 U/L (Less than 34); AST (SGOT) 400 U/L (11-34); Albumin 2.1 g/dL (3.1-4.5); Alkaline Phosphatase 202 U/L (40-110); Anion Gap 14 mmol/L (10-20); BUN (Urea Nitrogen) 19 mg/dL (9.8-20.1); Bilirubin, Total 5.1 mg/dL (0.3-1.2); Calc. Creatinine Clearance 69 mL/min (70-130); Calcium 8.9 mg/dL (7.8-10.44); Carbon Dioxide 18 mmol/L (23-31); Chloride 110 mmol/L (98-107); Globulin 2.9 g/dL (2.4-3.5); Glucose 93 mg/dL (80-115); Potassium 4.0 mmol/L (3.5-5.1); Sodium 138 mmol/L (136-145)
[2025-05-25 07:16] LABS: INR-International Normal Ratio 2.1; PTT 70.6 sec (22.9-36.1); Prothrombin Time 23.7 sec (12.0-14.7)
[2025-05-25 07:17] LABS: Vancomycin, Random 23.5 ug/mL (See Comment)
[2025-05-25 07:54] LABS: Anisocytosis SLIGHT = 6-15 cells HPF (0-5); Macrocytosis SLIGHT = 6-15 cells HPF (0-5); Nucleated RBC (Manual Ct) 22 % (0); Platelet Adequacy Comment Platelets Decreased; Polychromasia SLIGHT = 2-3 cells HPF (0-2); Schistocytes SLIGHT = 2-5 cells HPF (0-1); Smudge Cells 12.1 %
[2025-05-25 08:02] LABS: Magnesium 2.0 mg/dL (1.6-2.6)
[2025-05-25] MEDS ORDERED: CEFAZOLIN 2 GM VIAL ONE (08:04)
[2025-05-25] MEDS ORDERED: fentaNYL PF 100 MCG/2 ML SYRINGE ONE (08:18)
[2025-05-25] MEDS ORDERED: Lidocaine 1% (PF) 30 ML VIAL ONE (08:25)
[2025-05-25] MEDS ORDERED: Bupivacaine 0.25% HCL 30 ML VIAL ONE (08:25)
[2025-05-25] MEDS: Potassium Phosphate 22 MMOL in Sodium Chloride 0.9% 250 ML 250 ML IVPB SCH (12:00)
[2025-05-25] MEDS ORDERED: Vancomycin HCl 750 MG in Sodium Chloride 0.9% 250 ML 250 ML IVPB SCH (23:59)
[2025-05-26] MEDS: Dextrose 50% Abboject 50 ML SYRINGE SLOW IVP PRN (06:01)
[2025-05-26 07:24] LABS: INR-International Normal Ratio 2.9; Prothrombin Time 30.9 sec (12.0-14.7)
[2025-05-26 07:25] LABS: PTT 71.8 sec (22.9-36.1)
[2025-05-26 07:31] LABS: ALT (SGPT) 79 U/L (Less than 34); AST (SGOT) 615 U/L (11-34); Albumin 1.9 g/dL (3.1-4.5); Alkaline Phosphatase 197 U/L (40-110); Anion Gap 18 mmol/L (10-20); BUN (Urea Nitrogen) 32 mg/dL (9.8-20.1); Bilirubin, Total 5.9 mg/dL (0.3-1.2); Calc. Creatinine Clearance 32 mL/min (70-130); Calcium 8.8 mg/dL (7.8-10.44); Carbon Dioxide 17 mmol/L (23-31); Chloride 112 mmol/L (98-107); Globulin 2.8 g/dL (2.4-3.5); Glucose 115 mg/dL (80-115); Potassium 4.1 mmol/L (3.5-5.1); Sodium 143 mmol/L (136-145)
[2025-05-26 07:58] LABS: Hep A IgM AB NONREACTIVE (NonReactive); Hep A IgM S/CO 0.14 S/CO (0-0.79); Hep B Core IgM Index 0.10 S/CO (0-0.79); Hep B Surf Ag NONREACTIVE S/CO (NonReactive); Hep C IgG Ab NONREACTIVE S/CO (NonReactive); Hep C Index 0.09 S/CO (0-0.79)
[2025-05-26 08:33] LABS: Immunoglob - G (Total IgG) 853 mg/dL (552-1631); Immunoglob - M (Total IgM) 89 mg/dL (33-293)
[2025-05-26 10:17] LABS: Hematocrit 25.8 % (36.0-47.0); Hemoglobin 7.5 g/dL (12.0-16.0); Mean Corpuscular Hemoglobin 31.1 pg (27.0-31.0); Mean Corpuscular Volume 107.1 fL (78.0-98.0); Platelet Count 36 10x3/uL (130-400); Red Blood Cell (RBC) Count 2.41 mill/uL (4.20-5.40); White Blood Cell (WBC) Count 15.21 10x3/uL (4.8-10.8)
[2025-05-26 11:08] LABS: Anisocytosis MARKED = >30 cells HPF (0-5); Macrocytosis MODERATE=16-30 cells HPF (0-5); Nucleated RBC (Manual Ct) 32 % (0); Ovalocytes SLIGHT = 2-5 cells HPF (0-1); Platelet Adequacy Comment Significant Decrease; Polychromasia SLIGHT = 2-3 cells HPF (0-2); Schistocytes SLIGHT = 2-5 cells HPF (0-1); Smudge Cells 15.1 %
[2025-05-26] MEDS ORDERED: Lactulose 10 GM/15 ML Oral Solution PR SCH (11:45)
[2025-05-26] MEDS: Lactulose 20 GM (30 mL) UDCUP PR SCH (12:30)
[2025-05-26] MEDS: Lactulose 10 GM/15 ML Oral Solution PR SCH (12:30)
[2025-05-27] MEDS ORDERED: Atropine Sulfate 1% Ophth Soln 5 ml Bottle SL PRN (01:13)
[2025-05-27 01:25] VITALS: BP 70/50
[2025-05-27] MEDS ORDERED: Glycopyrrolate 0.4 MG/ 2 ML VIAL SLOW IVP PRN (01:30)
[2025-05-27] MEDS: Scopolamine 1 mg/72 hour Patch TD PRN (01:36)
[2025-05-27 03:20] VITALS: TEMP 97.5
[2025-05-31 13:37] LABS: ANA Symphony (Qualitative) Negative (Negative); ANA Symphony (Quantitative) 0.3 Ratio (< 0.7 Negative); EliA Vaculitis New Method **** NEW METHOD ****; Mitochondrial Ab 1.0 U/mL (<4 Negative); dsDNA IgG Antibody 0.8 IU/mL (<10 Negative)
== END 2025-05-27 05:30 | disposition expired | DRG 435 ==
LOC: ERS 06:24 → T4-B 10:04
PROVIDERS: ADMIT Family Medicine; ATTEND Family Medicine
PROC: 3E03329 Introduction of Other Anti-infective into Peripheral Vein, Percutaneous Approach (ICD-10-PCS; 2025-05-20)
PROC: 30233N1 Transfusion of Nonautologous Red Blood Cells into Peripheral Vein, Percutaneous Approach (ICD-10-PCS; 2025-05-21)
PROC: 0DB68ZX Excision of Stomach, Via Natural or Artificial Opening Endoscopic, Diagnostic (ICD-10-PCS; 2025-05-22)
PROC: 0JPT0WZ Removal of Totally Implantable Vascular Access Device from Trunk Subcutaneous Tissue and Fascia, Open Approach (ICD-10-PCS; principal; 2025-05-25)
PROC: 02PYX3Z Removal of Infusion Device from Great Vessel, External Approach (ICD-10-PCS; 2025-05-25)
DX: C78.7 Secondary malignant neoplasm of liver and intrahepatic bile duct (principal); J96.01 Acute respiratory failure with hypoxia; K72.00 Acute and subacute hepatic failure without coma; T80.211A Bloodstream infection due to central venous catheter, initial encounter; C79.51 Secondary malignant neoplasm of bone; K81.0 Acute cholecystitis; K92.0 Hematemesis; R78.81 Bacteremia; D61.818 Other pancytopenia; E83.52 Hypercalcemia; Z66 Do not resuscitate; E78.5 Hyperlipidemia, unspecified; I10 Essential (primary) hypertension; D72.829 Elevated white blood cell count, unspecified; C50.912 Malignant neoplasm of unspecified site of left female breast; D53.9 Nutritional anemia, unspecified; E87.6 Hypokalemia; R59.1 Generalized enlarged lymph nodes; E83.39 Other disorders of phosphorus metabolism; K74.69 Other cirrhosis of liver; E83.42 Hypomagnesemia; B95.2 Enterococcus as the cause of diseases classified elsewhere; Y84.0 Cardiac catheterization as the cause of abnormal reaction of the patient, or of later complication, without mention of misadventure at the time of the procedure; R16.2 Hepatomegaly with splenomegaly, not elsewhere classified; F32.A Depression, unspecified; Z98.890 Other specified postprocedural states; Z91.048 Other nonmedicinal substance allergy status; Z88.8 Allergy status to other drugs, medicaments and biological substances; Z90.710 Acquired absence of both cervix and uterus; Z79.899 Other long term (current) drug therapy; Z85.42 Personal history of malignant neoplasm of other parts of uterus; Z51.5 Encounter for palliative care; C78.89 Secondary malignant neoplasm of other digestive organs
CPT/HCPCS: 36415; 36416; 36430; 71045; 74177; 74183; 76705; 78227; 80048; 80053; 80074; 80202; 82140; 82306; 83516; 83605; 83690; 83735; 84100; 84484; 85025; 85610; 85730; 86015; 86038; 86225; 86850; 86900; 86901; 87040; 87070; 87077; 87186; 87205; 88305; 88341; 88342; 93005; 93306; 96361; 96374; 96375; A9537; J0169; J0290; J0630; J0665; J1940; J2060; J2250; J2354; J2470; J2543; J2704; J2805; J3373; J3375; J3475; J3480; J3489; J7030; J7050; J7999; P9016; Q9967